=== PATIENT | male | born 1970 | race African-American/Black ===

== ENCOUNTER 2023-11-26 00:07 | Emergency (ER) | payer SELFPAY ==
[~2023-11-26] VITALS: Ht 175.3 cm; Wt 87.0 kg
[2023-11-26 00:24] VITALS: BP 142/90; PULSE 102; RESP 14; TEMP 98.9; O2SAT 98
[2023-11-26 01:12] LABS: BASOPHILS % 0.7 % (0.0-2.0); HEMATOCRIT. 45.9 % (42.0-52.0); HEMOGLOBIN. 15.3 g/dL (14.0-18.0); LYMPHOCYTES % 22.5 % (20.0-50.0); MEAN CORPUSCULAR HEMOGLOBIN 29.6 pg (28.0-32.0); MEAN CORPUSCULAR HGB CONC 33.3 g/dL (31.0-37.0); MEAN CORPUSCULAR VOLUME 88.7 fL (80.0-94.0); MEAN PLATELET VOLUME 6.7 fl (7.4-10.4); MONOCYTES % 8.2 % (2.0-8.0); NEUTROPHILS % 67.6 % (40.0-76.0); PLATELET 398 x1000/uL (130-400); RED BLOOD CELL COUNT 5.17 mill/uL (4.7-6.1); RED CELL DISTRIBUTION WIDTH 13.7 % (11.6-14.6); WHITE BLOOD COUNT 6.1 x1000/uL (4.5-11.0)
[2023-11-26 01:19] LABS: CHLORIDE 105 mEq/L (98-107); POTASSIUM 3.7 mEq/L (3.5-5.1); SODIUM 137 mEq/L (136-145)
[2023-11-26 01:20] LABS: CARBON DIOXIDE 26 mEq/L (21-32)
[2023-11-26 01:21] LABS: CALCIUM 9.4 mg/dL (8.7-10.4)
[2023-11-26 01:25] LABS: CREATININE 1.1 mg/dL (0.6-1.3); GLUCOSE 89 mg/dL (70-105)
[2023-11-26 01:26] LABS: TROPONIN I HIGH SENSITIVITY 7 ng/L (3.0-53); UREA NITROGEN BLOOD 10 mg/dL (9-23)
[2023-11-26 01:27] LABS: ALANINE AMINOTRANSFERASE 49 IU/L (10-49); ALBUMIN 4.4 g/dL (3.2-4.8); ASPARTATE AMINOTRANSFERASE 45 IU/L (<34)
[2023-11-26 01:28] LABS: BILIRUBIN TOTAL 0.5 mg/dL (0.1-1.0); PROTEIN TOTAL 8.2 g/dL (6.0-8.3)
== END 2023-11-26 04:26 | disposition left against medical advice (07) ==
LOC: ER 00:07
DX: R07.9 Chest pain, unspecified (principal); Z53.21 Procedure and treatment not carried out due to patient leaving prior to being seen by health care provider
CPT/HCPCS: 36415; 71045; 80053; 80329; 84484; 85025; 93005; 99281

== ENCOUNTER 2024-01-12 14:42 | Emergency (ER) | payer MEDICAID ==
[~2024-01-12] VITALS: Ht 175.3 cm; Wt 82.0 kg
[2024-01-12 14:44] VITALS: BP 131/67; RESP 16; TEMP 98.7; O2SAT 99
[2024-01-12 14:46] VITALS: PULSE 85
[2024-01-12 15:19] LABS: BASOPHILS % 0.8 % (0.0-2.0); EOSINOPHILS % 2.2 % (0.0-5.0); HEMATOCRIT. 49.7 % (42.0-52.0); HEMOGLOBIN. 16.2 g/dL (14.0-18.0); LYMPHOCYTES % 32.1 % (20.0-50.0); MEAN CORPUSCULAR HGB CONC 32.6 g/dL (31.0-37.0); MEAN CORPUSCULAR VOLUME 88.9 fL (80.0-94.0); MEAN PLATELET VOLUME 7.2 fl (7.4-10.4); MONOCYTES % 10.2 % (2.0-8.0); NEUTROPHILS % 54.7 % (40.0-76.0); PLATELET 220 x1000/uL (130-400); RED BLOOD CELL COUNT 5.58 mill/uL (4.7-6.1); RED CELL DISTRIBUTION WIDTH 15.3 % (11.6-14.6); WHITE BLOOD COUNT 2.7 x1000/uL (4.5-11.0)
[2024-01-12 15:20] LABS: CHLORIDE 104 mEq/L (98-107); POTASSIUM 4.4 mEq/L (3.5-5.1); SODIUM 138 mEq/L (136-145)
[2024-01-12 15:21] LABS: CALCIUM 9.7 mg/dL (8.7-10.4); CARBON DIOXIDE 29 mEq/L (21-32)
[2024-01-12 15:26] LABS: CREATININE 1.1 mg/dL (0.6-1.3); GLUCOSE 119 mg/dL (70-105); UREA NITROGEN BLOOD 11 mg/dL (9-23)
[2024-01-12 15:35] LABS: TROPONIN I HIGH SENSITIVITY < 4 ng/L (3.0-53)
[2024-01-12] MEDS ORDERED: IBUP-2029 MT (17:24)
== END 2024-01-12 18:34 | disposition home or self-care (01) ==
LOC: ER 14:42
DX: R07.89 Other chest pain (principal); Z98.890 Other specified postprocedural states
CPT/HCPCS: 80048; 83880; 85025; 84484; 36415; 71045; 93005; 99285; Z7610 ×3

== ENCOUNTER 2024-06-22 15:55 | Emergency (ER) | payer MEDICAID ==
[~2024-06-22] VITALS: Ht 172.7 cm; Wt 75.0 kg
[~2024-06-22 15:55] MED LIST: IBUP-2029 MT
[2024-06-22 16:20] VITALS: O2SAT 99
[2024-06-22 18:09] LABS: BASOPHILS % 0.8 % (0.0-2.0); EOSINOPHILS % 2.4 % (0.0-5.0); HEMATOCRIT. 45.3 % (42.0-52.0); HEMOGLOBIN. 14.8 g/dL (14.0-18.0); LYMPHOCYTES % 41.5 % (20.0-50.0); MEAN CORPUSCULAR HGB CONC 32.6 g/dL (31.0-37.0); MEAN PLATELET VOLUME 7.1 fl (7.4-10.4); MONOCYTES % 11.3 % (2.0-8.0); PLATELET 224 x1000/uL (130-400); RED CELL DISTRIBUTION WIDTH 13.9 % (11.6-14.6); WHITE BLOOD COUNT 3.1 x1000/uL (4.5-11.0)
[2024-06-22 18:18] LABS: CHLORIDE 106 mEq/L (98-107); POTASSIUM 4.5 mEq/L (3.5-5.1); SODIUM 141 mEq/L (136-145)
[2024-06-22 18:19] LABS: CALCIUM 9.7 mg/dL (8.7-10.4); CARBON DIOXIDE 32 mEq/L (21-32)
[2024-06-22 18:24] LABS: CREATININE 1.2 mg/dL (0.6-1.3); GLUCOSE 107 mg/dL (70-105); UREA NITROGEN BLOOD 13 mg/dL (9-23)
[2024-06-22 18:26] LABS: ACETAMINOPHEN < 2 ug/mL (10-30); ALANINE AMINOTRANSFERASE 92 IU/L (10-49); ALBUMIN 4.3 g/dL (3.2-4.8); ASPARTATE AMINOTRANSFERASE 66 IU/L (<34); BILIRUBIN DIRECT 0.1 mg/dL (<=3.0); BILIRUBIN TOTAL 0.3 mg/dL (0.1-1.0); PROTEIN TOTAL 7.1 g/dL (6.0-8.3)
[2024-06-22 19:09] LABS: ETHANOL BLOOD < 10 mg/dL (<10)
[2024-06-22 19:34] LABS: GLUCOSE URINE NEGATIVE (NEGATIVE); KETONES URINE NEGATIVE (NEGATIVE)
[2024-06-22 19:40] LABS: CLARITY URINE CLEAR (CLEAR); COLOR URINE YELLOW (YELLOW); NITRITE URINE NEGATIVE (NEGATIVE); OCCULT BLOOD URINE NEGATIVE (NEGATIVE); PH URINE 6.5 (4.5-8.0); PROTEIN URINE NEGATIVE (NEGATIVE)
[2024-06-22 19:41] LABS: LEUKOCYTE ESTERASE URINE NEGATIVE (NEGATIVE)
[2024-06-22 19:54] LABS: *AMPHETAMINES SCREEN URINE NEGATIVE (NEGATIVE); *BARBITURATES SCREEN URINE NEGATIVE (NEGATIVE); *BENZODIAZEPINES SCREEN URINE NEGATIVE (NEGATIVE); *COCAINE SCREEN URINE NEGATIVE (NEGATIVE); CANNABINOID URINE SCREEN NEGATIVE (NEGATIVE); ECSTASY MDMA SCREEN URINE NEGATIVE (NEGATIVE); METHADONE URINE SCREEN NEGATIVE (NEGATIVE); OPIATES URINE SCREEN NEGATIVE (NEGATIVE); PHENCYCLIDINE URINE SCREEN NEGATIVE (NEGATIVE)
[2024-06-23] MEDS: IBUPROFEN 600MG TABLET PO ONE (06:54)
[2024-06-23 08:30] VITALS: BP 128/72; PULSE 75; RESP 16; TEMP 36.83628; O2SAT 100
== END 2024-06-23 10:45 | disposition home or self-care (01) ==
LOC: ER 15:55
DX: R45.851 Suicidal ideations (principal); Z20.822 Contact with and (suspected) exposure to COVID-19
CPT/HCPCS: 36415; 80048; 80076; 80305; 80307; 80320; 80329; 81003; 85025; 87426; 99285; G0480

== ENCOUNTER 2024-08-07 04:25 | Emergency (ER) | payer MEDICAID ==
[~2024-08-07] VITALS: Ht 172.7 cm; Wt 84.0 kg
[2024-08-07 04:32] VITALS: O2SAT 97
[2024-08-07] MEDS: CYCLOBENZAPRINE 10MG TABLET PO ONE (05:21)
[2024-08-07] MEDS: KETOROLAC 30MG/ML VIAL IM ONE (05:23)
[2024-08-07 06:55] LABS: CLARITY URINE CLEAR (CLEAR); COLOR URINE YELLOW (YELLOW); GLUCOSE URINE NEGATIVE (NEGATIVE); KETONES URINE 1+ (NEGATIVE); LEUKOCYTE ESTERASE URINE NEGATIVE (NEGATIVE); NITRITE URINE NEGATIVE (NEGATIVE); OCCULT BLOOD URINE NEGATIVE (NEGATIVE); PH URINE 5.5 (4.5-8.0); PROTEIN URINE NEGATIVE (NEGATIVE); SPECIFIC GRAVITY URINE 1.009 (1.005-1.030)
[2024-08-07 07:43] LABS: *AMPHETAMINES SCREEN URINE NEGATIVE (NEGATIVE); *BARBITURATES SCREEN URINE NEGATIVE (NEGATIVE); *BENZODIAZEPINES SCREEN URINE NEGATIVE (NEGATIVE); *COCAINE SCREEN URINE PRESUMPTIVE POSITIVE (NEGATIVE); CANNABINOID URINE SCREEN NEGATIVE (NEGATIVE); ECSTASY MDMA SCREEN URINE NEGATIVE (NEGATIVE); METHADONE URINE SCREEN NEGATIVE (NEGATIVE); OPIATES URINE SCREEN NEGATIVE (NEGATIVE); PHENCYCLIDINE URINE SCREEN NEGATIVE (NEGATIVE)
[2024-08-07 07:46] LABS: BASOPHILS % 0.6 % (0.0-2.0); EOSINOPHILS % 1.7 % (0.0-5.0); HEMATOCRIT. 47.7 % (42.0-52.0); HEMOGLOBIN. 15.2 g/dL (14.0-18.0); LYMPHOCYTES % 33.5 % (20.0-50.0); MEAN CORPUSCULAR HEMOGLOBIN 29.2 pg (28.0-32.0); MEAN CORPUSCULAR HGB CONC 31.8 g/dL (31.0-37.0); MEAN CORPUSCULAR VOLUME 91.8 fL (80.0-94.0); MEAN PLATELET VOLUME 7.3 fl (7.4-10.4); MONOCYTES % 12.4 % (2.0-8.0); NEUTROPHILS % 51.8 % (40.0-76.0); PLATELET 216 x1000/uL (130-400); RED BLOOD CELL COUNT 5.19 mill/uL (4.7-6.1); RED CELL DISTRIBUTION WIDTH 14.3 % (11.6-14.6); WHITE BLOOD COUNT 3.8 x1000/uL (4.5-11.0)
[2024-08-07 07:54] LABS: CHLORIDE 104 mEq/L (98-107); POTASSIUM 4.5 mEq/L (3.5-5.1); SODIUM 136 mEq/L (136-145)
[2024-08-07 07:55] LABS: CARBON DIOXIDE 22 mEq/L (21-32)
[2024-08-07 07:56] LABS: CALCIUM 9.5 mg/dL (8.7-10.4)
[2024-08-07 08:00] LABS: GLUCOSE 58 mg/dL (70-105)
[2024-08-07 08:01] LABS: UREA NITROGEN BLOOD 9 mg/dL (9-23)
[2024-08-07 08:02] LABS: ACETAMINOPHEN < 2 ug/mL (10-30); ALANINE AMINOTRANSFERASE 81 IU/L (10-49); ALBUMIN 4.2 g/dL (3.2-4.8); ASPARTATE AMINOTRANSFERASE 85 IU/L (<34)
[2024-08-07 08:03] LABS: BILIRUBIN TOTAL 0.7 mg/dL (0.1-1.0); PROTEIN TOTAL 7.1 g/dL (6.0-8.3)
[2024-08-07 08:29] LABS: ETHANOL BLOOD < 10 mg/dL (<10)
[2024-08-07] MEDS: ACETAMINOPHEN 325MG TABLET PO ONE (18:45)
[2024-08-07] MEDS: RISPERIDONE 1MG TABLET PO SCH (21:15)
[2024-08-08] MEDS: IBUPROFEN 600MG TABLET PO ONE (10:44)
[2024-08-08] MEDS ORDERED: RISP1 PO (11:25)
[2024-08-08 11:45] VITALS: BP 108/68; PULSE 64; RESP 16; TEMP 36.94740; O2SAT 98
== END 2024-08-08 11:49 | disposition home or self-care (01) ==
LOC: ER 04:25
DX: R45.851 Suicidal ideations (principal); F32.9 Major depressive disorder, single episode, unspecified; F19.11 Other psychoactive substance abuse, in remission; F41.9 Anxiety disorder, unspecified; F20.9 Schizophrenia, unspecified; Z79.899 Other long term (current) drug therapy; Z20.822 Contact with and (suspected) exposure to COVID-19
CPT/HCPCS: 80053; 80305; 81003; 80307; 80329; 80320; 85025; 36415; 96372; 99285; 87426; J1885; G0480

== ENCOUNTER 2024-08-17 21:08 | Emergency (ER) | payer SELFPAY ==
[~2024-08-17] VITALS: Ht 175.3 cm; Wt 79.0 kg
[~2024-08-17 21:08] MED LIST changes: +RISP1 PO
[2024-08-17 21:56] VITALS: O2SAT 100
[2024-08-17 22:51] LABS: *AMPHETAMINES SCREEN URINE NEGATIVE (NEGATIVE); *BARBITURATES SCREEN URINE NEGATIVE (NEGATIVE); *BENZODIAZEPINES SCREEN URINE NEGATIVE (NEGATIVE); *COCAINE SCREEN URINE PRESUMPTIVE POSITIVE (NEGATIVE); CANNABINOID URINE SCREEN NEGATIVE (NEGATIVE); ECSTASY MDMA SCREEN URINE NEGATIVE (NEGATIVE); METHADONE URINE SCREEN NEGATIVE (NEGATIVE); OPIATES URINE SCREEN NEGATIVE (NEGATIVE); PHENCYCLIDINE URINE SCREEN NEGATIVE (NEGATIVE)
[2024-08-17 22:57] LABS: CLARITY URINE CLEAR (CLEAR); COLOR URINE YELLOW (YELLOW); GLUCOSE URINE NEGATIVE (NEGATIVE); KETONES URINE TRACE (NEGATIVE); LEUKOCYTE ESTERASE URINE NEGATIVE (NEGATIVE); NITRITE URINE NEGATIVE (NEGATIVE); OCCULT BLOOD URINE NEGATIVE (NEGATIVE); PH URINE 5.5 (4.5-8.0); PROTEIN URINE NEGATIVE (NEGATIVE); SPECIFIC GRAVITY URINE 1.019 (1.005-1.030); UROBILINOGEN URINE 0.2 E.U./dL (0.2-1.0)
[2024-08-17] MEDS: KETOROLAC 15MG/ML VIAL IM ONE (23:30)
[2024-08-17 23:58] LABS: BASOPHILS % 0.8 % (0.0-2.0); EOSINOPHILS % 1.2 % (0.0-5.0); HEMATOCRIT. 47.6 % (42.0-52.0); HEMOGLOBIN. 15.5 g/dL (14.0-18.0); LYMPHOCYTES % 36.7 % (20.0-50.0); MEAN CORPUSCULAR HGB CONC 32.6 g/dL (31.0-37.0); MEAN PLATELET VOLUME 7.6 fl (7.4-10.4); MONOCYTES % 9.4 % (2.0-8.0); NEUTROPHILS % 51.9 % (40.0-76.0); PLATELET 256 x1000/uL (130-400); RED BLOOD CELL COUNT 5.35 mill/uL (4.7-6.1); RED CELL DISTRIBUTION WIDTH 13.8 % (11.6-14.6); WHITE BLOOD COUNT 4.8 x1000/uL (4.5-11.0)
[2024-08-18 00:13] LABS: CHLORIDE 103 mEq/L (98-107); POTASSIUM 5.3 mEq/L (3.5-5.1); SODIUM 137 mEq/L (136-145)
[2024-08-18 00:14] LABS: CALCIUM 10.1 mg/dL (8.7-10.4); CARBON DIOXIDE 26 mEq/L (21-32)
[2024-08-18 00:19] LABS: CREATININE 1.1 mg/dL (0.6-1.3); GLUCOSE 77 mg/dL (70-105); UREA NITROGEN BLOOD 14 mg/dL (9-23)
[2024-08-18 00:21] LABS: ACETAMINOPHEN < 2 ug/mL (10-30)
[2024-08-18 01:02] LABS: ETHANOL BLOOD < 10 mg/dL (<10)
[2024-08-18] MEDS: SODIUM ZIRCONIUM CYCLOSILICATE 10GM/PACKET PO NR (01:09)
[2024-08-18] MEDS: SODIUM ZIRCONIUM CYCLOSILICATE 10GM/PACKET PO ONE (01:10)
[2024-08-18 01:20] VITALS: PULSE 81; RESP 20
[2024-08-18] MEDS: ALBUTEROL (0.083%) 2.5MG/3ML NEB HHN ONE (01:26)
[2024-08-18 04:56] LABS: CHLORIDE 104 mEq/L (98-107); POTASSIUM 3.8 mEq/L (3.5-5.1); SODIUM 139 mEq/L (136-145)
[2024-08-18 04:57] LABS: CALCIUM 9.5 mg/dL (8.7-10.4); CARBON DIOXIDE 26 mEq/L (21-32)
[2024-08-18 05:02] LABS: CREATININE 1.1 mg/dL (0.6-1.3); GLUCOSE 66 mg/dL (70-105); UREA NITROGEN BLOOD 16 mg/dL (9-23)
[2024-08-18] MEDS: SERTRALINE HCL 50MG TABLET PO SCH (11:30)
[2024-08-18 16:08] VITALS: BP 129/76; PULSE 88; RESP 19; TEMP 36.83628; O2SAT 100
[2024-08-18] MEDS ORDERED: RISPERIDONE 1MG TABLET PO SCH (21:00)
== END 2024-08-18 16:38 ==
LOC: ER 21:08
DX: R44.0 Auditory hallucinations (principal); F14.90 Cocaine use, unspecified, uncomplicated; E87.5 Hyperkalemia; F10.10 Alcohol abuse, uncomplicated; M19.90 Unspecified osteoarthritis, unspecified site; F41.9 Anxiety disorder, unspecified; F32.9 Major depressive disorder, single episode, unspecified; Z02.2 Encounter for examination for admission to residential institution; Z59.00 Homelessness unspecified; Z79.899 Other long term (current) drug therapy; Z91.51 Personal history of suicidal behavior; Z20.822 Contact with and (suspected) exposure to COVID-19
CPT/HCPCS: 80305; 80048 ×2; 81003; 80307; 80329; 80320; 85025; 36415 ×2; 96372; 99291; 87426; 94640; J1885; Z7610 ×4; G0480

== ENCOUNTER 2024-12-30 10:43 | Emergency (ER) | payer SELFPAY ==
[~2024-12-30] VITALS: Ht 175.3 cm; Wt 88.0 kg
[2024-12-30 11:01] VITALS: O2SAT 98
[2024-12-30 11:19] LABS: BASOPHILS % 0.6 % (0.0-2.0); EOSINOPHILS % 0.4 % (0.0-5.0); HEMATOCRIT. 44.7 % (42.0-52.0); HEMOGLOBIN. 14.8 g/dL (14.0-18.0); MEAN CORPUSCULAR HEMOGLOBIN 28.4 pg (28.0-32.0); MONOCYTES % 7.7 % (2.0-8.0); NEUTROPHILS % 72.3 % (40.0-76.0); PLATELET 252 x1000/uL (130-400); RED CELL DISTRIBUTION WIDTH 13.7 % (11.6-14.6); WHITE BLOOD COUNT 7.5 x1000/uL (4.5-11.0)
[2024-12-30 11:24] LABS: CHLORIDE 102 mEq/L (98-107); POTASSIUM 4.1 mEq/L (3.5-5.1); SODIUM 136 mEq/L (136-145)
[2024-12-30 11:25] LABS: CALCIUM 9.7 mg/dL (8.7-10.4); CARBON DIOXIDE 25 mEq/L (21-32)
[2024-12-30 11:30] LABS: CREATININE 1.4 mg/dL (0.6-1.3); GLUCOSE 83 mg/dL (70-105)
[2024-12-30 11:31] LABS: ETHANOL BLOOD < 10 mg/dL (<10); UREA NITROGEN BLOOD 14 mg/dL (9-23)
[2024-12-30 12:27] VITALS: BP 132/78; PULSE 85; RESP 16; TEMP 36.7; O2SAT 100
== END 2024-12-30 14:00 | disposition home or self-care (01) ==
LOC: ER 10:43
DX: R45.851 Suicidal ideations (principal); F14.90 Cocaine use, unspecified, uncomplicated; Z79.899 Other long term (current) drug therapy
CPT/HCPCS: 36415; 80048; 80307; 80320; 80329; 85025; 99285; G0480

== ENCOUNTER 2025-01-01 11:06 | Emergency (ER) | payer MEDICAID ==
[~2025-01-01] VITALS: Ht 175.3 cm; Wt 93.0 kg
[2025-01-01 11:08] VITALS: O2SAT 98
[2025-01-01] MEDS: KETOROLAC 30MG/ML VIAL IM ONE (11:47)
[2025-01-01 12:56] LABS: BASOPHILS % 0.5 % (0.0-2.0); EOSINOPHILS % 0.6 % (0.0-5.0); HEMATOCRIT. 44.6 % (42.0-52.0); HEMOGLOBIN. 14.9 g/dL (14.0-18.0); LYMPHOCYTES % 16.6 % (20.0-50.0); MEAN CORPUSCULAR HEMOGLOBIN 29.4 pg (28.0-32.0); MEAN CORPUSCULAR HGB CONC 33.4 g/dL (31.0-37.0); MEAN CORPUSCULAR VOLUME 88.1 fL (80.0-94.0); MEAN PLATELET VOLUME 6.9 fl (7.4-10.4); MONOCYTES % 6.2 % (2.0-8.0); NEUTROPHILS % 76.1 % (40.0-76.0); PLATELET 226 x1000/uL (130-400); RED BLOOD CELL COUNT 5.06 mill/uL (4.7-6.1); RED CELL DISTRIBUTION WIDTH 14.1 % (11.6-14.6); WHITE BLOOD COUNT 7.5 x1000/uL (4.5-11.0)
[2025-01-01 13:13] LABS: CHLORIDE 104 mEq/L (98-107); POTASSIUM 4.3 mEq/L (3.5-5.1); SODIUM 138 mEq/L (136-145)
[2025-01-01 13:14] LABS: CARBON DIOXIDE 26 mEq/L (21-32)
[2025-01-01 13:15] LABS: CALCIUM 9.6 mg/dL (8.7-10.4)
[2025-01-01 13:19] LABS: CREATININE 1.4 mg/dL (0.6-1.3); GLUCOSE 100 mg/dL (70-105)
[2025-01-01 13:20] LABS: ETHANOL BLOOD < 10 mg/dL (<10); UREA NITROGEN BLOOD 14 mg/dL (9-23)
[2025-01-01 13:21] LABS: ACETAMINOPHEN < 2 ug/mL (10-30)
[2025-01-01 14:04] LABS: CLARITY URINE TURBID (CLEAR); COLOR URINE DARK YELLOW (YELLOW); GLUCOSE URINE NEGATIVE (NEGATIVE); KETONES URINE 1+ (NEGATIVE); LEUKOCYTE ESTERASE URINE NEGATIVE (NEGATIVE); NITRITE URINE NEGATIVE (NEGATIVE); OCCULT BLOOD URINE NEGATIVE (NEGATIVE); PH URINE 5.5 (4.5-8.0); PROTEIN URINE 1+ (NEGATIVE); SPECIFIC GRAVITY URINE 1.034 (1.005-1.030)
[2025-01-01 14:37] LABS: AMORPHOUS SEDIMENT URINE 4+ /lpf
[2025-01-01 14:38] LABS: RBC URINE NONE SEEN /hpf (0-2); SQUAMOUS EPITHELIAL CELL URINE NONE SEEN /lpf (RARE/1+); WBC URINE 0-2 /hpf (0-2)
[2025-01-01 14:39] LABS: BACTERIA URINE 1+
[2025-01-01 15:10] LABS: *AMPHETAMINES SCREEN URINE NEGATIVE (NEGATIVE); *BARBITURATES SCREEN URINE NEGATIVE (NEGATIVE); *BENZODIAZEPINES SCREEN URINE NEGATIVE (NEGATIVE); *COCAINE SCREEN URINE PRESUMPTIVE POSITIVE (NEGATIVE); CANNABINOID URINE SCREEN NEGATIVE (NEGATIVE); ECSTASY MDMA SCREEN URINE NEGATIVE (NEGATIVE); METHADONE URINE SCREEN NEGATIVE (NEGATIVE); OPIATES URINE SCREEN NEGATIVE (NEGATIVE); PHENCYCLIDINE URINE SCREEN NEGATIVE (NEGATIVE)
[2025-01-03] MEDS: ACETAMINOPHEN 325MG TABLET PO ONE (00:15)
[2025-01-04 10:34] VITALS: BP 114/57; PULSE 66; RESP 16; TEMP 37; O2SAT 99
== END 2025-01-04 10:37 | disposition home or self-care (01) ==
LOC: ER 11:06
DX: S60.812A Abrasion of left wrist, initial encounter (principal); S60.811A Abrasion of right wrist, initial encounter; R45.851 Suicidal ideations; M79.621 Pain in right upper arm; F20.9 Schizophrenia, unspecified; F17.200 Nicotine dependence, unspecified, uncomplicated; F19.90 Other psychoactive substance use, unspecified, uncomplicated; Z79.899 Other long term (current) drug therapy; Z20.822 Contact with and (suspected) exposure to COVID-19; W45.8XXA Other foreign body or object entering through skin, initial encounter; Y93.89 Activity, other specified; Y92.89 Other specified places as the place of occurrence of the external cause; Y99.8 Other external cause status
CPT/HCPCS: 80305; 80048; 81003; 80307; 80329; 80320; 85025; 36415; 73030; 73060; 73070; 96372; 99285; 87426; J1885; Z7610; G0480